=== PATIENT | female | born 1975 | race Caucasian/White ===

== ENCOUNTER 2020-12-08 16:05 | Emergency (ER) | payer SELFPAY ==
[~2020-12-08] VITALS: Ht 167.6 cm; Wt 94.0 kg
[2020-12-08 16:55] LABS: URINE HCG NEGATIVE (NEG)
[2020-12-08] MEDS ORDERED: famotidine/PF 10 mg/ml inj IV ONE ×2 (16:55→17:15)
[2020-12-08] MEDS ORDERED: pantoprazole 40 MG vial IV ONE ×2 (16:55→17:15)
[2020-12-08] MEDS ORDERED: normal saline 1000ML IV soln IVB ONE ×2 (16:55→17:15)
[2020-12-08 16:58] LABS: CLARITY,URINE CLOUDY (Clear); COLOR,URINE YELLOW (Yellow); GLUCOSE, URINE NEGATIVE (Neg); KETONES,URINE 15 mg/dl (Neg); LEUKOCYTE ESTERASE ,URINE NEGATIVE (Neg); NITRITES, URINE NEGATIVE (Neg); OCCULT BLOOD,URINE LARGE (Neg); PH,URINE 5.5 (4.8-8.0); PROTEIN,URINE 100 mg/dl (Neg); UROBILINOGEN,URINE 0.2 E.U/dL (0.2-1.0)
[2020-12-08 17:00] LABS: UA COLLECTION TYPE CLN CATCH MIDSTREAM
[2020-12-08] MEDS ORDERED: ondansetron/PF 4mg/2ml inj IV ONE (17:15)
[2020-12-08] MEDS ORDERED: haloperidol lactate 5mg/ml inj IM ONE (17:15)
[2020-12-08 17:16] LABS: EOSINOPHILS # (AUTO) 0.1 X10'3 (0-0.9); HEMOGLOBIN 15.5 g/dl (12.0-16.0); MONOCYTES # (AUTO) 0.4 X10'3 (0-0.9); WHITE BLOOD COUNT 8.8 X10'3 (4.5-11.0)
[2020-12-08 17:18] LABS: BASOPHILS % (AUTO) 0.5 % (0-1); EOSINOPHILS % (AUTO) 0.6 % (0-6); HEMATOCRIT 46.9 % (35.0-45.0); LYMPHOCYTES # (AUTO) 1.4 X10'3 (1.1-4.8); LYMPHOCYTES % (AUTO) 15.6 % (21-51); MEAN CORPUSCULAR HEMOGLOBIN 27.5 PG (27.0-31.0); MEAN CORPUSCULAR VOLUME 83.3 FL (78-98); MEAN PLATELET VOLUME 7.8 FL (7.4-10.4); MONOCYTES % (AUTO) 4.9 % (2-12); NEUTROPHILS # (AUTO) 6.9 X10'3 (1.8-7.7); NEUTROPHILS % (AUTO) 78.4 % (42-75); PLATELET COUNT 345 X10'3 (140-440); RED BLOOD COUNT 5.63 X10'6 (4.20-5.60); RED CELL DISTRIBUTION WIDTH 14.4 % (11.5-14.5)
[2020-12-08 17:25] LABS: ALANINE AMINOTRANSFERASE 25 U/L (12-78); ALBUMIN 4.3 G/DL (3.4-5.0); ALBUMIN/GLOBULIN RATIO 1.1 (1.1-1.5); ALKALINE PHOSPHATASE 111 IU/L (46-116); ANION GAP 11 (8-16); ASPARTATE AMINO TRANSFERASE 18 U/L (10-37); BILIRUBIN,TOTAL 0.4 MG/DL (0.1-1.0); BLOOD UREA NITROGEN 14 MG/DL (7-18); BUN/CREATININE RATIO 15.6 (6.6-38.0); CALCIUM 9.6 MG/DL (8.5-10.1); CHLORIDE 103 MMOL/L (99-107); GLUCOSE 115 MG/DL (70-104); LIPASE 96 U/L (73-393); POTASSIUM 4.2 MMOL/L (3.5-5.1); SODIUM 141 MMOL/L (135-145); TOTAL CARBON DIOXIDE 26.9 MMOL/L (24-32); TOTAL PROTEIN 8.3 G/DL (6.4-8.2); eGFR 67 ML/MIN
[2020-12-08 17:28] LABS: MUCUS STRANDS MODERATE /LPF (Neg); SQUAMOUS EPITHELIAL CELL,UR MODERATE /LPF (FEW)
[2020-12-08 17:29] LABS: BACTERIA,URINE 1+ /HPF (Neg); WBC,URINE 0-4 /HPF (0-4)
[2020-12-08 17:37] LABS: ETHANOL < 0.010 GM/DL (0.0-0.010)
[2020-12-08] MEDS: morphine 4 MG/ML inj SYRINge IV PRN ×2 (18:02→18:05)
[2020-12-08] MEDS ORDERED: PROC25SU31 RC (18:33)
[2020-12-08] MEDS ORDERED: ONDA4TAB6 PO (18:33)
--- NOTE | 2020-12-08 18:40 | NUR ---
ASSUMED CARE OF PATIENT PENDING DISCHARGE . ALL VSS . PT STATES SHE FEELS MUCH BETTER POST PEPCID . IVF WITH NS TO RIGHT AC PATENT WITHOUT INCIDENT . NO CHANGES TO PREVIOUS HEAD TO TOE ASSESSMENT
[2020-12-08 18:51] VITALS: BP 134/74
--- NOTE | 2020-12-08 18:51 | NUR ---
20 G PIV REMOVED FROM RIGHT FOREARM AT TIME FO DISCHARGE. IV PLACEMENT NOT CHARTED FROM PREVIOUS NURSE
[2020-12-08 18:55] LABS: URINE AMPHETAMINE SCREEN NEGATIVE (Neg); URINE BARBITUATE SCREEN NEGATIVE (Neg); URINE BENZODIAZEPINES SCREEN NEGATIVE (Neg); URINE CANNABINOID SCREEN POSITIVE (Neg); URINE COCAINE SCREEN NEGATIVE (Neg); URINE METHADONE SCREEN NEGATIVE (Neg); URINE OPIATE SCREEN NEGATIVE (Neg); URINE PHENCYCLIDINE SCREEN NEGATIVE (Neg)
== END 2020-12-08 18:53 | disposition home or self-care (01) ==
LOC: ER 16:06
DX: K29.00 Acute gastritis without bleeding (principal); F12.90 Cannabis use, unspecified, uncomplicated; Z79.899 Other long term (current) drug therapy
CPT/HCPCS: 36415; 74176; 80053; 80305; 80320; 81001; 81025; 83690; 85025; 96361; 96372; 96374; 96375; 99285; C9113; J1630; J2270; J2405; J3490; J7030